=== PATIENT | male | born 1965 | race Caucasian/White ===

== ENCOUNTER 2021-11-23 12:24 | Emergency (ER) | payer MEDICAID, SELFPAY ==
[2021-11-23] VITALS (23 sets, daily range): BP systolic 111–142; BP diastolic 60–85; PULSE 95–111; RESP 14–22; TEMP 36.8–37.1; O2SAT 90–97
--- NOTE | 2021-11-23 13:15 | NUR.NOTE ---
pt states that he was in the drunk tank and was released on 11/22 . he walked for 24 hours in the wrong direction he [place]x [place] miles [place]. he c/o bi lat foot pain and he is afraid that he may detox and have a seizure .Nursing Note:
--- NOTE | 2021-11-23 13:28 | ED.GENADUL_ITS ---
Discharge Plan Disposition Patient Disposition: HOME Condition: Improving Discharge Details Clinical Impression: Foot pain, Alcohol withdrawal Primary Care Provider: Kareem Razo ED Provider: Kareem French Home Meds and New Rx's Prescriptions: New chlordiazepoxide HCl 25 mg capsule 25 mg PO ONCE Qty: 15 0RF Rx Instructions: take 2 capsules q6hr on day 1; take 1 capsules q6hr on day 2; take 1 capsule q12hr on day 3; take 1 capsule at bedtime on day 4 No Action folic acid 1 mg Tablet PO DAILY 0RF sertraline 50 mg Tablet 50 mg PO DAILY AM 0RF gabapentin 800 mg Tablet 800 mg PO BID 0RF buspirone 30 mg Tablet 30 mg PO BID 0RF buspirone 15 mg Tablet 15 mg PO BID 0RF vit [id number]-mecobalamin 29-11-50-1-2 mg Capsule 1 cap PO DAILY 0RF mirtazapine 30 mg Tablet 30 mg PO HS 0RF Discharge Instructions Instructions: Alcohol Withdrawal (ED) Additional Instructions: Please be seen by your primary care physician. Please return the emergency department if you develop any signs of withdrawal including fast heart rate tremors seizures shakes or any other abnormal symptomatology. Medical Decision Making 56-year-old male presents [place] up [place] on the highway, endorses recently being released from assisted, endorses last drink was yesterday, endorses bilateral foot pain from walking. Does have a callus formation and poorly hygienic feet. Does have blood blister to fifth digit of left foot, DP pulse intact sensation intact moving all extremities alert and oriented. Mildly tachycardic. Consider early alcohol withdrawal. Given a dose of Librium, now resting comfortably heart rate 98 bpm patient is from [place] and is wondering how he can get home, have coordinated a ride with [facility]. Low suspicion for electrolyte abnormality intracranial process infection rhabdo or compartment syndrome. Given instruction to take Librium taper. Home care instructions and return precautions given. HPI General Date/Time Provider Initiated Documentation: 11/23/21 12:43 . HPI Narrative: 56-year-old male history of alcohol abuse, recently released from assisted, was walking along the highway picked up endorsing foot pain and early alcohol withdrawal. Denies medical problems denies medication use. Last drink was yesterday Related Data Home Medications Medication Instructions Recorded Confirmed buspirone 15 mg tablet 15 mg PO BID 11/23/21 11/23/21 buspirone 30 mg tablet 30 mg PO BID 11/23/21 11/23/21 chlordiazepoxide HCl 25 mg capsule 25 mg PO ONCE #15 cap 11/23/21 folic acid 1 mg tablet PO DAILY 11/23/21 gabapentin 800 mg tablet 800 mg PO BID 11/23/21 11/23/21 mirtazapine 30 mg tablet 30 mg PO HS 11/23/21 11/23/21 sertraline 50 mg tablet 50 mg PO DAILY AM 11/23/21 11/23/21 vit B1 27 mg-B2 29 mg-B6 50 1 cap PO DAILY 11/23/21 11/23/21 mg-folic acid 1 mg-mecobalam 2 mg capsule Previous Rx's Medication Instructions Recorded chlordiazepoxide HCl 25 mg capsule 25 mg PO ONCE #15 cap 11/23/21 Allergies Allergy/AdvReac Type Severity Reaction Status Date / Time No Known Allergies Allergy Unverified 11/23/21 13:00 General Stated Complaint: ETOHWithdr HERON: 3 Review of Systems Narrative: Review of Systems Constitutional: negative Eyes: negative ENT: negative Cardiovascular: negative Respiratory: negative Gastrointestinal: negative : negative Musculoskeletal: Foot pain Skin: negative Neurologic: Alcohol withdrawal Psych: negative PFSH All Active Problems (Updated 11/23/21 @ 15:39 by Kareem French MD) Foot pain (Acute) Alcohol withdrawal (Acute) Social History Smoking/Tobacco Use Status: Current every day Tobacco Type: cigarettes Smoking risk assessment performed?: Yes Alcohol Intake: current Drug use: Occasionally Substance use type: marijuana Do you feel safe at home: Yes Do you feel safe in your relationship?: Yes Exam Narrative Exam Narrative: Physical Examination General: alert, awake, cooperative, resting comfortably, no acute distress HEENT: normocephalic, atraumatic; PERRL, EOM intact, conjunctiva normal; no nasal discharge; moist mucous membranes, oral and pharyngeal mucosa normal, tolerating secretions Neck: supple, trachea midline; full ROM Chest: normal to inspection Respiratory: normal respiratory effort, speaking in full sentences, clear to auscultation, no wheezing, rales or rhonchi Cardiac: Tachycardia, regular rhythm, S1S2 intact, no murmurs rubs or gallops GI: abdomen soft, non-tender, non-distended; no palpable mass or hepatosplenomegaly Skin: no lesions, rashes or trauma appreciated Neuro: AAOx3, normal speech, moving all extremities Extremities: Bilateral lower extremity: Poor hygiene to bilateral feet, callus formation, DP pulses intact bilaterally, blood blister evident to fifth digit of left foot, sensate and warm lower extremities Psych: Appropriate mood and affect Course Vital Signs Vital signs: Vital Signs Temperature 37.1 C 11/23/21 12:25 Pulse 103 H 11/23/21 12:25 Respiratory Rate 16 11/23/21 12:25 Blood Pressure 142/85 H 11/23/21 12:25 Pulse Oximetry 96 11/23/21 12:25 Temperature 37.1 C 11/23/21 12:25 Temperature Source Tympanic 11/23/21 12:25 Pulse 103 H 11/23/21 12:25 Respiratory Rate 20 11/23/21 12:46 Respiratory Effort Non-Labored 11/23/21 12:32 Respiratory Pattern Normal 11/23/21 12:40 Blood Pressure 136/68 11/23/21 12:46 Blood Pressure Position Supine 11/23/21 12:25 Pulse Oximetry 92 11/23/21 12:46 Oxygen Delivery Method Room Air 11/23/21 12:46 Oxygen Flow Rate 0 11/23/21 12:46 Pain Level 8 11/23/21 12:25 PAWSS Have you Been Recently Intoxicated or Drunk Within the Last 30 days?: Yes Have you Ever Experienced Previous Episodes of Alcohol Withdrawal?: Yes Have you ever Experienced Withdrawal Seizures?: Yes Have you ever Experienced Delirium Tremens(DT)s?: Yes Have you ever undergone Alcohol Rehabilitation Treatment (i.e, inpt ot outpatient treatment programs)?: Yes Have you ever Experienced Blackouts?: Yes Have you ever Combined Alcohol with other Downers within the last 90 days?: Yes Have you ever Combined Alcohol with any other Substance of Abuse during the last 90 days?: Yes Positive Blood Alcohol level on Presentation? [PCS.BAL]: Unable to Obtain Evidence of Increased Autonomic Activity (i.e. HR>120, tremor, sweating, agitation, nausea)?: Yes Result: 9
[2021-11-23] MEDS: chlordiazePOXIDE 25 MG CAP 75 MG PO (13:40)
--- NOTE | 2021-11-23 15:55 | CMACTNOTE_ITS ---
- If Service Date Differs Date of service: 11/23/21 Time of Service: 15:55 Care Management Activity Note Tashi presents in the ED for foot pain and alcohol withdrawal. At the request of ED provider, [facility] tel. # [phone] to schedule transportation for Tashi back to [place].
== END 2021-11-23 15:38 | disposition home or self-care (01) ==
PROVIDERS: Emergency Provider Emergency Medicine; PCP Internal Medicine
DX: M79.671 Pain in right foot (principal); M79.672 Pain in left foot; R00.0 Tachycardia, unspecified; F10.239 Alcohol dependence with withdrawal, unspecified
CPT/HCPCS: 99283